=== PATIENT | female | born 1995 | race Caucasian/White ===

== ENCOUNTER 2017-08-16 19:03 | Emergency (ER) | payer OTHER, BC ==
[2017-08-16 19:09] VITALS: BP 142/93; PULSE 95; RESP 16; TEMP 97.4
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
[2017-08-16] MEDS ORDERED: ACETAMINOPHEN TAB 325 MG TAB PO STA (20:23)
== END 2017-08-16 20:43 | disposition home or self-care (01) ==
LOC: EC 19:03
DX: S09.90XA Unspecified injury of head, initial encounter (principal); S60.511A Abrasion of right hand, initial encounter; Z79.899 Other long term (current) drug therapy; Z88.5 Allergy status to narcotic agent; V49.60XA Unspecified car occupant injured in collision with unspecified motor vehicles in traffic accident, initial encounter; Y92.410 Unspecified street and highway as the place of occurrence of the external cause
CPT/HCPCS: 70450; 71020; 99284